=== PATIENT | male | born 1930 | race Two or more races ===

== ENCOUNTER 2017-04-28 17:42 | Inpatient (IN) | payer MEDICARE, BC ==
[2017-04-28] MEDS ORDERED: PROMETHAZINE HCL 6.25 MG in 0.9 % SODIUM CHLORIDE 100ML 100 ML IVPB ONE (18:11)
[2017-04-28] MEDS ORDERED: MORPHINE SULFATE 5 MG/ML PFS IVP ONE (18:11)
--- NOTE | 2017-04-28 18:19 | Emergency Department Record ---
History of Present Illness - General Chief complaint: Extremity Problem Stated complaint: SWOLLEN HAND Time Seen by Provider: 04/28/17 18:06 Source: Patient Mode of Arrival: Ambulatory Limitations: No limitations - History of Present Illness Initial comments: pt [facility] hand that they wondered if it was cellulitis vs gout. hand became red and painful 3 days ago. pt denies injury MD Complaint: Extremity pain, Extremity swelling Onset/Timin -: Days(s) Location: Left, Hand History of Same: No Severity scale (1-10): 9 Quality: Aching, Sharp Consistency: Constant Improves with: Nothing Worsens with: Nothing Associated Symptoms: Denies other symptoms - Related Data Home Medications Medication Instructions Recorded Confirmed Last Taken Budesonide/Formoterol Fumarate 1 puff IH DAILY 04/28/17 04/28/17 Unknown [Symbicort 160-4.5 Mcg Inhaler] Donepezil HCl [Donepezil HCl] 10 mg PO DAILY 04/28/17 04/28/17 Unknown Duloxetine HCl [Cymbalta] 30 mg PO DAILY 04/28/17 04/28/17 Unknown Ezetimibe/Simvastatin 1 each PO DAILY 04/28/17 04/28/17 Unknown [Ezetimibe-Simvastatin 10-40 mg] Fluoxetine HCl [Fluoxetine HCl] 20 mg PO DAILY 04/28/17 04/28/17 Unknown Furosemide [Lasix] 20 mg PO DAILY 04/28/17 04/28/17 Unknown Lorazepam [Ativan] 1 mg PO DAILY 04/28/17 04/28/17 Unknown Mirabegron [Myrbetriq] 50 mg PO DAILY 04/28/17 04/28/17 Unknown Oxycodone HCl/Acetaminophen 1 tab PO Q4H PRN 04/28/17 04/28/17 Unknown [Oxycodone/Acetaminophen 5mg/325mg] Trazodone HCl [Desyrel] 50 mg PO DAILY 04/28/17 04/28/17 Unknown Allergies Allergy/AdvReac Type Severity Reaction Status Date / Time levofloxacin [From Levaquin] Allergy NAUSEA AND Verified 04/28/17 17:53 VOMITING Travel Screening - Travel/Exposure Within Last 30 Days Have you traveled within the last 30 days?: No Review of Systems Reviewed: No additional complaints except as noted below Constitutional: Reports: As per HPI. Denies: Chills, Fever, Malaise, Night sweats, Weakness, Weight change Eyes: Reports: As per HPI. Denies: Eye discharge, Eye pain, Photophobia, Vision change ENT: Reports: As per HPI. Denies: Congestion, Dental pain, Ear pain, Epistaxis , Hearing loss, Throat pain Respiratory: Reports: As per HPI. Denies: Cough, Dyspnea, Hemoptysis, Stridor, Wheezes Cardiovascular: Reports: As per HPI. Denies: Arrhythmia, Chest pain, Dyspnea on exertion, Edema, Murmurs, Orthopnea, Palpitations, Paroxysmal nocturnal dyspnea, Rheumatic Fever, Syncope Endocrine: Reports: As per HPI. Denies: Fatigue, Heat or cold intolerance, Polydipsia, Polyuria Gastrointestinal: Reports: As per HPI. Denies: Abdominal pain, Constipation, Diarrhea, Hematemesis, Hematochezia, Melena, Nausea, Vomiting Genitourinary: Reports: As per HPI. Denies: Dysuria, Frequency, Hematuria, Incontinence, Retention, Testicular pain, Testicular mass, Urgency Musculoskeletal: Reports: As per HPI, Other. Denies: Arthralgia, Back pain, Gout, Joint swelling, Myalgia, Neck pain Skin: Reports: As per HPI, Other. Denies: Bruising, Change in color, Change in hair/nails, Lesions, Pruritus, Rash Neurological: Reports: As per HPI. Denies: Abnormal gait, Confusion, Headache, Numbness, Paresthesias, Seizure, Tingling, Tremors, Vertigo, Weakness Psychiatric: Reports: As per HPI. Denies: Anxiety, Auditory hallucinations, Depression, Homicidal thoughts, Suicidal thoughts, Visual hallucinations Hematological/Lymphatic: Reports: As per HPI. Denies: Anemia, Blood Clots, Easy bleeding, Easy bruising, Swollen glands Past Medical History - SOCIAL HISTORY Smoking Status: Light tobacco smoker (<10/day) Alcohol Use: None Drug Use: None - RESPIRATORY Hx Respiratory Disorders: Yes Hx Asthma: Yes Hx COPD: Yes - CARDIOVASCULAR Hx Cardio Disorders: Yes Hx Abnormal EKG: Yes - NEURO Hx Neuro Disorders: Yes Hx Headaches: Yes - GI Hx GI Disorders: No - Hx Genitourinary Disorders: Yes Hx Kidney Stones: Yes - ENDOCRINE Hx Endocrine Disorders: No - MUSCULOSKELETAL Hx Musculoskeletal Disorders: Yes Hx Arthritis: Yes - PSYCH Hx Psych Problems: Yes Hx Anxiety: Yes Hx Depression: Yes - HEMATOLOGY/ONCOLOGY Hx Hematology/Oncology Disorders: No Family Medical History Any Significant Family History?: No Physical Exam - General General Appearance: Alert, Oriented x3, Cooperative, Mild distress - Head Head exam: Normal inspection - Eye Eye exam: Normal appearance, PERRL, EOMI Pupils: Normal accommodation - ENT ENT exam: Normal exam, Mucous membranes moist, Normal external ear exam, Normal orophraynx Ear exam: Normal external inspection. negative: External canal tenderness Nasal Exam: Normal inspection. negative: Discharge, Sinus tenderness Mouth exam: Normal external inspection, Tongue normal Teeth exam: Normal inspection. negative: Dental caries Throat exam: Normal inspection. negative: Tonsillar erythema, Tonsillar exudate - Neck Neck exam: Normal inspection, Full ROM. negative: Tenderness - Respiratory Respiratory exam: Normal lung sounds bilaterally. negative: Respiratory distress - Cardiovascular Cardiovascular Exam: Regular rate, Normal rhythm, Normal heart sounds - GI/Abdominal GI/Abdominal exam: Soft, Normal bowel sounds. negative: Tenderness - Rectal Rectal exam: Deferred - exam: Deferred - Extremities Extremities exam: Normal inspection, Normal capillary refill, Tenderness. negative: Full ROM Image of Hand: 1 - swelling, erythema, pain, lrom - Back Back exam: Reports: Normal inspection, Full ROM. Denies: Muscle spasm, Rash noted, Tenderness - Neurological Neurological exam: Alert, Normal gait, Oriented X3, Reflexes normal - Psychiatric Psychiatric exam: Normal affect, Normal mood - Skin Skin exam: Dry, Intact, Normal color, Warm Course Vital Signs 04/28/17 17:47 Temperature 98.3 F Pulse Rate 65 Respiratory 20 Rate Blood Pressure 128/70 Pulse Ox 92 L Medical Decision Making - Lab Data Result diagrams: 04/28/17 18:30 04/28/17 18:30 Disposition Disposition: Admit Clinical Impression: Cellulitis of hand Disposition: Still a Patient at [facility] Decision to Admit: Admit from ER Decision to Admit Date: 04/28/17 Decision to Admit Time: 19:27 Forms: Patient Portal Access Quality - Quality Measures Quality Measures: N/A - Blood Pressure Screening Does Patient Have Any of the Following: No Blood Pressure Classification: Pre-Hypertensive BP Reading Systolic Measurement: 128 Diastolic Measurement: 70 Screening for High Blood Pressure: < Pre-Hypertensive BP, F/U Documented > [ [id number]] Pre-Hypertensive Follow-up Interventions: Follow-up with rescreen every year.
[2017-04-28 18:41] LABS: BASO % 0.2 % (0-6); EOS % 1.3 % (0-6); GRAN % 77.6 % (47-80); HEMATOCRIT 40.1 % (42.0-52.0); HEMOGLOBIN 12.8 gm/dl (14.0-18.0); LYMPH % 10.3 % (16-45); MEAN CELL VOLUME 97.3 fl (81-97); MEAN CORPUSCULAR HGB CONC 31.9 g/dl (32-36); MEAN PLATELET VOLUME 9.7 fl (7.4-10.4); MONO % 10.6 % (0-9); PLATELET COUNT 163 K/uL (130-400); RED BLOOD COUNT 4.12 M/uL (4.40-5.70); RED CELL DISTRIBUTION WIDTH 13.2 % (11.5-14.5); WHITE BLOOD COUNT W/O DIFF 8.2 K/uL (4.2-12.2)
[2017-04-28] MEDS ORDERED: CEFTRIAXONE SODIUM 1 GM in 0.9 % SODIUM CHLORIDE 100ML 100 ML IVPB ONE (18:49)
[2017-04-28 18:53] LABS: BLOOD UREA NITROGEN 16 mg/dL (8-23); CREATININE 0.9 mg/dL (0.7-1.2); EST GLOMERULAR FILTRATION RATE > 60 mL/min
[2017-04-28 18:56] LABS: GLUCOSE,RANDOM 115 mg/dL (74-109)
[2017-04-28] MEDS ORDERED: MORPHINE SULFATE 5 MG/ML PFS IVP PRN (19:53)
[2017-04-28] MEDS ORDERED: PROMETHAZINE HCL 6.25 MG in 0.9 % SODIUM CHLORIDE 100ML 100 ML IVPB PRN (19:53)
[2017-04-28] MEDS ORDERED: ACETAMINOPHEN 500 MG TABLET PO PRN (19:53)
[2017-04-28] MEDS: CEFTRIAXONE SODIUM 1 GM in 0.9 % SODIUM CHLORIDE 100ML 100 ML IVPB SCH (21:09)
[2017-04-28] MEDS: EZETIMIBE 10 MG TABLET PO SCH (21:36)
[2017-04-28] MEDS: SIMVASTATIN 20 MG TABLET PO SCH (21:36)
[2017-04-28] MEDS: HYDROCODONE/APAP 5/325MG TABLET PO PRN (22:44)
[2017-04-29] MEDS: HYDROCODONE/APAP 5/325MG TABLET PO PRN (05:21)
[2017-04-29] MEDS ORDERED: LORAZEPAM 0.5 MG TABLET PO PRN (07:18)
--- NOTE | 2017-04-29 07:54 | History & Physical ---
History of Present Illness - Date of Service Date of Service for History & Physical: 04/29/17 - History of Present Illness Admitting Diagnosis: cellulitis History of Present Illness: 86 yo male admitted for cellulitis. Patient presented to an urgent care yesterday regarding one week of worsening left hand pain, redness and swelling. The urgent care encouraged patient to go to the ER. While in the ER, patient was afebrile. WBC normal. Left hand x ray relatively unremarkable. Pain improved with IV Morphine. Cellulitis outlined and patient admitted for IV antibiotics and further monitoring. PCP: Dr. Ho Travel Screening - Travel/Exposure Within Last 30 Days Have you traveled within the last 30 days?: No - Travel/Exposure Within Last Year Have you traveled outside the [place] in the last year?: No - Additonal Travel Details Have you been exposed to anyone with a communicable illness?: No Review of Systems Constitutional: Reports: As per HPI. Denies: Chills, Fever, Malaise, Night sweats, Weakness, Weight change Eyes: Reports: As per HPI. Denies: Eye discharge, Eye pain, Photophobia, Vision change ENT: Reports: As per HPI. Denies: Congestion, Dental pain, Ear pain, Epistaxis , Hearing loss, Throat pain Respiratory: Reports: As per HPI. Denies: Cough, Dyspnea, Hemoptysis, Stridor, Wheezes Cardiovascular: Reports: As per HPI. Denies: Arrhythmia, Chest pain, Dyspnea on exertion, Edema, Murmurs, Orthopnea, Palpitations, Paroxysmal nocturnal dyspnea, Rheumatic Fever, Syncope Endocrine: Reports: As per HPI. Denies: Fatigue, Heat or cold intolerance, Polydipsia, Polyuria Gastrointestinal: Reports: As per HPI. Denies: Abdominal pain, Constipation, Diarrhea, Hematemesis, Hematochezia, Melena, Nausea, Vomiting Genitourinary: Reports: As per HPI. Denies: Dysuria, Frequency, Hematuria, Incontinence, Retention, Testicular pain, Testicular mass, Urgency Musculoskeletal: Reports: As per HPI, Other. Denies: Arthralgia, Back pain, Gout, Joint swelling, Myalgia, Neck pain Skin: Reports: As per HPI, Other. Denies: Bruising, Change in color, Change in hair/nails, Lesions, Pruritus, Rash Neurological: Reports: As per HPI. Denies: Abnormal gait, Confusion, Headache, Numbness, Paresthesias, Seizure, Tingling, Tremors, Vertigo, Weakness Psychiatric: Reports: As per HPI. Denies: Anxiety, Auditory hallucinations, Depression, Homicidal thoughts, Suicidal thoughts, Visual hallucinations Hematological/Lymphatic: Reports: As per HPI. Denies: Anemia, Blood Clots, Easy bleeding, Easy bruising, Swollen glands Past Medical History - SOCIAL HISTORY Smoking Status: Light tobacco smoker (<10/day) Alcohol Use: Rare Drug Use: None - RESPIRATORY Hx Respiratory Disorders: Yes Hx Asthma: Yes Hx COPD: Yes - CARDIOVASCULAR Hx Cardio Disorders: Yes Hx Abnormal EKG: Yes - NEURO Hx Neuro Disorders: Yes Hx Headaches: Yes - GI Hx GI Disorders: No - Hx Genitourinary Disorders: Yes Hx Kidney Stones: Yes - ENDOCRINE Hx Endocrine Disorders: No - MUSCULOSKELETAL Hx Musculoskeletal Disorders: Yes Hx Arthritis: Yes - PSYCH Hx Psych Problems: Yes Hx Anxiety: Yes Hx Depression: Yes - HEMATOLOGY/ONCOLOGY Hx Hematology/Oncology Disorders: No Family Medical History Any Significant Family History?: No H&P Meds/Allergies - Allergies Allergies: Allergies Allergy/AdvReac Type Severity Reaction Status Date / Time levofloxacin [From Levaquin] Allergy NAUSEA AND Verified 04/28/17 17:53 VOMITING - Home Medications Home Medications Medication Instructions Recorded Confirmed Last Taken Budesonide/Formoterol Fumarate 1 puff IH DAILY 04/28/17 04/28/17 Unknown [Symbicort 160-4.5 Mcg Inhaler] Donepezil HCl [Donepezil HCl] 10 mg PO DAILY 04/28/17 04/28/17 Unknown Duloxetine HCl [Cymbalta] 30 mg PO DAILY 04/28/17 04/28/17 Unknown Ezetimibe/Simvastatin 1 each PO DAILY 04/28/17 04/28/17 Unknown [Ezetimibe-Simvastatin 10-40 mg] Fluoxetine HCl [Fluoxetine HCl] 20 mg PO DAILY 04/28/17 04/28/17 Unknown Furosemide [Lasix] 20 mg PO DAILY 04/28/17 04/28/17 Unknown Lorazepam [Ativan] 1 mg PO DAILY 04/28/17 04/28/17 Unknown Mirabegron [Myrbetriq] 50 mg PO DAILY 04/28/17 04/28/17 Unknown Oxycodone HCl/Acetaminophen 1 tab PO Q4H PRN 04/28/17 04/28/17 Unknown [Oxycodone/Acetaminophen 5mg/325mg] Trazodone HCl [Desyrel] 50 mg PO DAILY 04/28/17 04/28/17 Unknown - Active Medications Active Medications: Current Medications Acetaminophen (Tylenol 500mg Tab) 1,000 mg PO Q6H PRN PRN Reason: PAIN/TEMP Hydrocodone Bitart/Acetaminophen (Perry 5mg/325mg) 1 each PO Q6H PRN PRN Reason: Pain - Severe (8-10) Last Admin: 04/29/17 05:21 Dose: 1 each Donepezil HCl (Aricept) 10 mg PO DAILY [facility] Duloxetine HCl (Cymbalta) 30 mg PO DAILY [facility] Ezetimibe (Zetia) 10 mg PO QHS [facility] Last Admin: 04/28/17 21:36 Dose: 10 mg Fluoxetine HCl (Prozac) 20 mg PO DAILY [facility] Furosemide (Lasix) 20 mg PO DAILY [facility] Ceftriaxone Sodium 1 gm/ (Sodium Chloride) 100 mls @ 200 mls/hr IVPB Q12H [facility] Stop: 05/03/17 19:54 Last Admin: 04/28/17 21:09 Dose: Not Given Promethazine HCl 6.25 mg/ (Sodium Chloride) 100.25 mls @ 200 mls/hr IVPB Q6H PRN PRN Reason: NAUSEA/VOMITING Lorazepam (Ativan) 0.5 mg PO TID PRN PRN Reason: ANXIETY Morphine Sulfate (Morphine Sulfate) 2 mg IVP Q4H PRN PRN Reason: Pain - Moderate (5-7) Stop: 05/05/17 19:54 Patient Own Med: Myrbetric ( Mirabegron) 50mg Tablet 1 each MC DAILY [facility] Simvastatin (Zocor) 40 mg PO QHS [facility] Last Admin: 04/28/17 21:36 Dose: 40 mg Trazodone HCl (Desyrel) 50 mg PO DAILY [facility] Physical Exam - Vital Signs Vital Signs: Vital Signs - Last 24 Hrs Temp Pulse Resp BP BP Pulse Ox 04/28/17 21:00 97.5 F L 65 20 132/80 97 04/28/17 20:53 61 20 04/28/17 20:05 20 138/83 95 04/28/17 20:00 16 86 L - General General Appearance: Alert, Oriented x3, Cooperative, No acute distress Limitations: No limitations - Head Head exam: Normal inspection - Eye Eye exam: Normal appearance, PERRL, EOMI Pupils: Normal accommodation - ENT ENT exam: Normal exam, Mucous membranes moist, Normal external ear exam, Normal orophraynx Ear exam: Normal external inspection. negative: External canal tenderness Nasal Exam: Normal inspection. negative: Discharge, Sinus tenderness Mouth exam: Normal external inspection, Tongue normal Teeth exam: Normal inspection. negative: Dental caries Throat exam: Normal inspection. negative: Tonsillar erythema, Tonsillar exudate - Neck Neck exam: Normal inspection, Full ROM. negative: Tenderness - Respiratory Respiratory exam: Normal lung sounds bilaterally, Decreased breath sounds ( throughout). negative: Respiratory distress - Cardiovascular Cardiovascular Exam: Regular rate, Normal rhythm, Normal heart sounds - GI/Abdominal GI/Abdominal exam: Soft, Normal bowel sounds. negative: Tenderness - Rectal Rectal exam: Deferred - exam: Deferred - Extremities Extremities exam: Normal inspection, Joint swelling (left hand), Normal capillary refill, Tenderness. negative: Full ROM - Back Back exam: Reports: Normal inspection, Full ROM. Denies: Muscle spasm, Rash noted, Tenderness - Neurological Neurological exam: Alert, Normal gait, Oriented X3, Reflexes normal - Psychiatric Psychiatric exam: Normal affect, Normal mood - Skin Skin exam: Dry, Erythema (left hand, within marked lines), Intact, Warm. negative: Rash Type of lesion: negative: Abscess, Laceration Results - Labs Result Diagrams: 04/28/17 18:30 04/28/17 18:30 VTE H&P Assessment - Risk for VTE Risk for VTE: Yes Risk Level: Moderate Risk Assessment Date: 04/29/17 Risk Assessment Time: 10:00 VTE Orders Placed or Will Be Placed: No VTE Reason for No Prophylaxis: Not Indicated (patient ambulating the room) Plan - Inpatient Certification Inpatient Certification: Admit to inpatient care: Based on my medical assessment, after consideration of patient's risk factors (age, co-morbidities and patient presenting symptoms and acuity), I expect that this patient will remain in the hospital greater than or equal to two midnights and that the services needed warrant inpatient care because: Patient Risk Factors: [] Estimated length of stay: [] The patient may reasonably be expected to be discharged or transferred to a hospital within 96 hours after admission to [facility]. Services needed: [] Post hospital care (if known): [] I certify that my determination is in accordance with my understanding of Medicare requirements for reasonable and necessary inpatient services. - Detailed Diagnosis and Plan (1) Cellulitis of hand Current Visit: Yes Status: Acute Base Code: L03.119 - CELLULITIS OF UNSPECIFIED PART OF LIMB Comment: 04/29/17 - normal temp and wbc - redness improved since admission. erythema outlined - will continue IV Rocephin. Plan to transition to PO Clinda later today or tomorrow - Percocet 5/325 TID for pain control - continue to monitor for fever, worsening pain, or redness. - anticipate D/C home Sunday (2) Full code status Current Visit: Yes Status: Acute Base Code: Z78.9 - OTHER SPECIFIED HEALTH STATUS Comment: 04/29- FULL CODE (3) DVT prophylaxis Current Visit: Yes Status: Acute Base Code: [id number] - Comment: 04/29 - ambulation as tolerated
[2017-04-29] MEDS: CEFTRIAXONE SODIUM 1 GM in 0.9 % SODIUM CHLORIDE 100ML 100 ML IVPB SCH ×2 (08:05→21:36)
[2017-04-29] MEDS: OXYCODONE HCL/APAP 5MG/325MG TABLET PO SCH ×2 (09:13→15:55)
[2017-04-29] MEDS: DONEPEZIL HCL 5 MG TABLET PO SCH (09:14)
[2017-04-29] MEDS: DULOXETINE HCL 30 MG CAPSULE.DR PO SCH (09:14)
[2017-04-29] MEDS: TRAZODONE 50 MG TABLET PO SCH (09:14)
[2017-04-29] MEDS: FLUOXETINE HCL 20 MG CAPSULE PO SCH (09:15)
[2017-04-29] MEDS: FUROSEMIDE 20 MG TABLET PO SCH (09:15)
[2017-04-29] MEDS ORDERED: [UNRECOGNIZED DRUG - OTHER] IH SCH (10:00)
[2017-04-29] MEDS ORDERED: FORMOTEROL FUMARATE IH SCH (10:00)
[2017-04-29] MEDS ORDERED: MYRBETRIC 50 MG MC SCH (10:00)
[2017-04-29] MEDS ORDERED: LORAZEPAM 0.5 MG TABLET PO SCH (10:00)
[2017-04-29] MEDS ORDERED: LORAZEPAM 1 MG PO SCH (10:00)
[2017-04-29] MEDS ORDERED: SIMVASTATIN PO SCH (10:00)
[2017-04-29] MEDS ORDERED: Non-Formulary MISC (Mirabegron [Myrbetriq] 50 MG) PO SCH (10:00)
[2017-04-29] MEDS ORDERED: BUDESONIDE IH SCH (10:00)
[2017-04-29] MEDS ORDERED: EZETIMIBE PO SCH (10:00)
[2017-04-29] MEDS ORDERED: Non-Formulary MISC (Donepezil Hcl [Donepezil Hcl] 10 MG) PO SCH (10:00)
[2017-04-29] MEDS: BREO (FLUTICASONE/VILANTEROL) 200MCG/25MCG INHALER INH SCH (11:07)
[2017-04-29] MEDS ORDERED: SUMATRIPTAN 6 MG/0.5 ML VIAL SQ ONE (13:54)
[2017-04-29] MEDS: MYRBETRIC 50 MG MC SCH (19:43)
[2017-04-29] MEDS: SIMVASTATIN 20 MG TABLET PO SCH (21:35)
[2017-04-29] MEDS: EZETIMIBE 10 MG TABLET PO SCH (21:36)
[2017-04-29] MEDS ORDERED: OXYCODONE HCL/APAP 5MG/325MG TABLET PO SCH (22:00)
--- NOTE | 2017-04-29 22:46 | RADIOLOGY REPORT ---
EXAM: HAND, LEFT 3 VIEWS HISTORY: INJURY. TECHNIQUE: Three views of the left hand were performed. FINDINGS: There is severe degenerative change of the first carpometacarpal joint space. There is moderate degenerative change of the proximal and distal interphalangeal joint spaces of all digits. No bony destructive change. IMPRESSION: 1. 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 2. MODERATE DEGENERATIVE CHANGE OF THE PROXIMAL AND DISTAL INTERPHALANGEAL JOINT SPACES OF ALL DIGITS. NO BONY DESTRUCTIVE CHANGE. [facility]: [id number] [facility]
[2017-04-30] MEDS: OXYCODONE HCL/APAP 5MG/325MG TABLET PO SCH ×4 (02:13→20:05)
[2017-04-30 06:44] LABS: EOS % 2.5 % (0-6); HEMOGLOBIN 12.8 gm/dl (14.0-18.0); LYMPH % 19.3 % (16-45); MEAN CELL VOLUME 96.6 fl (81-97); MEAN CORPUSCULAR HEMOGLOBIN 30.9 pg (27-33); MEAN PLATELET VOLUME 9.5 fl (7.4-10.4); MONO % 10.2 % (0-9); PLATELET COUNT 175 K/uL (130-400); RED BLOOD COUNT 4.14 M/uL (4.40-5.70); RED CELL DISTRIBUTION WIDTH 12.9 % (11.5-14.5); WHITE BLOOD COUNT W/O DIFF 5.7 K/uL (4.2-12.2)
[2017-04-30 07:07] LABS: ALBUMIN 3.4 g/dL (4.0-5.0); ALKALINE PHOSPHATASE 83 U/L (40-129); ALT/SGPT 21 U/L (<41); AST/SGOT 27 U/L (10.0-50.0); BLOOD UREA NITROGEN 13 mg/dL (8-23); CREATININE 0.7 mg/dL (0.7-1.2); EST GLOMERULAR FILTRATION RATE > 60 mL/min; GLUCOSE,RANDOM 89 mg/dL (74-109); TOTAL PROTEIN 6.8 g/dL (6.6-8.7)
--- NOTE | 2017-04-30 07:28 | RADIOLOGY REPORT ---
EXAM: CHEST, TWO VIEWS HISTORY: CHEST CONGESTION. COPD. TECHNIQUE: Two views of the chest were obtained. Comparison: None. FINDINGS: The heart is not enlarged. Aortic atherosclerosis and mild tortuosity. Previous aortic valve repair. The lungs are hyperinflated likely related to emphysematous change/COPD. There are coarsened interstitial markings likely on account of scarring/fibrosis. Superimposed infiltrates, however, would be difficult to completely exclude. No clear focal consolidation or pleural effusion. Left plate like discoid atelectasis or scar within the lung base. IMPRESSION: 1. PRESUMED INTERSTITIAL SCARRING/FIBROSIS THOUGHT SUPERIMPOSED INFILTRATES DIFFICULT TO COMPLETELY EXCLUDE. 2. COPD. JOB NUMBER: [id number] [facility]
[2017-04-30] MEDS: CEFTRIAXONE SODIUM 1 GM in 0.9 % SODIUM CHLORIDE 100ML 100 ML IVPB SCH ×2 (08:04→20:00)
[2017-04-30] MEDS: TRAZODONE 50 MG TABLET PO SCH (09:33)
[2017-04-30] MEDS: DULOXETINE HCL 30 MG CAPSULE.DR PO SCH (09:33)
[2017-04-30] MEDS: FUROSEMIDE 20 MG TABLET PO SCH (09:33)
[2017-04-30] MEDS: FLUOXETINE HCL 20 MG CAPSULE PO SCH ×2 (09:33→11:02)
[2017-04-30] MEDS: DONEPEZIL HCL 5 MG TABLET PO SCH (09:33)
[2017-04-30] MEDS ORDERED: LORAZEPAM 0.5 MG TABLET PO PRN (10:00)
--- NOTE | 2017-04-30 10:55 | Physician Progress Note ---
Subjective - Date Date of Physician Progress Note: 04/30/17 - Subjective Subjective Comment: lying in bed. left hand pain continues though Percocet 5/325 mg Q6 has been helpful. Redness remains within borders. ROM decreased 2/2 pain level. No additional concerns at this time. Objective - Vital Signs Vital Signs: Vital Signs - Last 24 Hrs Temp Pulse Pulse Resp BP BP BP 04/30/17 10:12 97.5 F L 122/74 04/30/17 10:00 97.8 F 69 16 116/66 04/30/17 08:10 20 04/30/17 06:00 97.5 F L 66 18 122/74 04/29/17 20:39 97.9 F 71 18 110/71 04/29/17 13:55 72 16 112/63 04/29/17 11:18 76 18 04/29/17 11:09 98.1 F 80 18 134/69 Pulse Ox 04/30/17 10:12 04/30/17 10:00 96 04/30/17 08:10 04/30/17 06:00 94 L 04/29/17 20:39 95 04/29/17 13:55 93 L 04/29/17 11:18 93 L 04/29/17 11:09 92 L - General General Appearance: Alert, Oriented x3, Cooperative, No acute distress Limitations: No limitations - Head Head exam: Normal inspection - Eye Eye exam: Normal appearance, PERRL, EOMI Pupils: Normal accommodation - ENT ENT exam: Normal exam, Mucous membranes moist, Normal external ear exam, Normal orophraynx Ear exam: Normal external inspection. negative: External canal tenderness Nasal Exam: Normal inspection. negative: Discharge, Sinus tenderness Mouth exam: Normal external inspection, Tongue normal Teeth exam: Normal inspection. negative: Dental caries Throat exam: Normal inspection. negative: Tonsillar erythema, Tonsillar exudate - Neck Neck exam: Normal inspection, Full ROM. negative: Tenderness - Respiratory Respiratory exam: Normal lung sounds bilaterally, Decreased breath sounds ( throughout). negative: Respiratory distress - Cardiovascular Cardiovascular Exam: Regular rate, Normal rhythm, Normal heart sounds - GI/Abdominal GI/Abdominal exam: Soft, Normal bowel sounds. negative: Tenderness - Rectal Rectal exam: Deferred - exam: Deferred - Extremities Extremities exam: Normal inspection, Joint swelling (left hand), Normal capillary refill, Tenderness. negative: Full ROM - Back Back exam: Reports: Normal inspection, Full ROM. Denies: Muscle spasm, Rash noted, Tenderness - Neurological Neurological exam: Alert, Normal gait, Oriented X3, Reflexes normal - Psychiatric Psychiatric exam: Normal affect, Normal mood - Skin Skin exam: Dry, Erythema (left hand, within marked lines), Intact, Warm. negative: Rash Type of lesion: negative: Abscess, Laceration Assessment and Plan - Inpatient Certification Inpatient Certification: RFs: left hand swelling, erythema and pain. treatments: IV antibiotics, pain control, monitor VSs length of stay: 2-3 nights d/c plan: home 04/30/17 10:54 - Assessment and Plan (1) Cellulitis of hand Current Visit: Yes Status: Acute Base Code: L03.119 - CELLULITIS OF UNSPECIFIED PART OF LIMB Comment: 04/30 - normal temp and wbc. left hand xray on admission relatively unremarkable - redness unchange. remains within drwan borders - will continue IV Rocephin. Plan to transition to PO Clinda later today or tomorrow - Percocet 5/325 TID for pain control - will obtain CRP, sed rate and CT of left hand - continue to monitor for fever, worsening pain, or redness. - will await d/c noting continued erythema, swelling and pain level. (2) Full code status Current Visit: Yes Status: Acute Base Code: Z78.9 - OTHER SPECIFIED HEALTH STATUS Comment: 04/30- FULL CODE (3) DVT prophylaxis Current Visit: Yes Status: Acute Base Code: [id number] - Comment: 04/30 - ambulation as tolerated Results - Labs Result Diagrams: 04/30/17 06:27 04/30/17 06:27 Labs Last 24 Hours: Laboratory Results - last 24 hr 04/30/17 04/30/17 04/30/17 06:27 06:27 07:00 WBC 5.7 RBC 4.14 L Hgb 12.8 L Hct 40.0 L MCV 96.6 MCH 30.9 MCHC 32.0 RDW 12.9 Plt Count 175 MPV 9.5 Gran % 68.0 Lymphocytes % 19.3 Monocytes % 10.2 H Eosinophils % 2.5 Basophils % 0.0 Sodium 140 Potassium 4.2 Chloride 103 Carbon Dioxide 28.0 Anion Gap 9.0 BUN 13 Creatinine 0.7 Estimated GFR > 60 Random Glucose 89 Calcium 8.8 Total Bilirubin 0.20 AST 27 ALT 21 Alkaline Phosphatase 83 C-Reactive Protein 13.98 H Total Protein 6.8 Albumin 3.4 L Globulin 3.4 Albumin/Globulin Ratio 1.0 L DVT/PE Assessment - Risk for VTE Risk for VTE: No Risk Level: Moderate Risk Assessment Date: 04/29/17 Risk Assessment Time: 10:00 VTE Orders Placed or Will Be Placed: No VTE Reason for No Prophylaxis: Not Indicated (patient ambulating the room) - Active Medicaitons Current Medications: Current Medications Acetaminophen (Tylenol 500mg Tab) 1,000 mg PO Q6H PRN PRN Reason: PAIN/TEMP Buspirone HCl (Buspar) 30 mg PO BID [facility] Clopidogrel Bisulfate (Plavix) 75 mg PO DAILY [facility] Donepezil HCl (Aricept) 10 mg PO QHS [facility] Duloxetine HCl (Cymbalta) 30 mg PO DAILY [facility] Last Admin: 04/30/17 09:33 Dose: 30 mg Ezetimibe (Zetia) 10 mg PO QHS [facility] Last Admin: 04/29/17 21:36 Dose: 10 mg Fluoxetine HCl (Prozac) 40 mg PO DAILY [facility] Furosemide (Lasix) 20 mg PO DAILY [facility] Last Admin: 04/30/17 09:33 Dose: 20 mg Ceftriaxone Sodium 1 gm/ (Sodium Chloride) 100 mls @ 200 mls/hr IVPB Q12H [facility] Stop: 05/03/17 19:54 Last Admin: 04/30/17 08:04 Dose: 200 mls/hr Lorazepam (Ativan) 0.5 mg PO BID PRN PRN Reason: ANXIETY Melatonin (Melatonin) 5 mg PO QHS [facility] Morphine Sulfate (Morphine Sulfate) 2 mg IVP Q4H PRN PRN Reason: Pain - Moderate (5-7) Stop: 05/05/17 19:54 Oxycodone/Acetaminophen (Percocet 5-325 Mg Tablet) 1 udtab PO Q6H [facility] Stop: 05/07/17 02:16 Last Admin: 04/30/17 08:04 Dose: 1 udtab Patient Own Med: Myrbetric ( Mirabegron) 50mg Tablet 1 each MC 1700 [facility] Last Admin: 04/29/17 19:43 Dose: 1 each Simvastatin (Zocor) 40 mg PO QHS [facility] Last Admin: 04/29/17 21:35 Dose: 40 mg Trazodone HCl (Desyrel) 50 mg PO QHS [facility] AMI Plan - Labs Result Diagrams: 04/30/17 06:27 04/30/17 06:27
[2017-04-30] MEDS: BUSPIRONE 5 MG TABLET PO SCH ×2 (11:01→21:32)
[2017-04-30] MEDS: CLOPIDOGREL 75MG TABLET PO SCH (11:02)
[2017-04-30] MEDS: BREO (FLUTICASONE/VILANTEROL) 200MCG/25MCG INHALER INH SCH (11:18)
[2017-04-30] MEDS: MYRBETRIC 50 MG MC SCH (17:53)
[2017-04-30] MEDS: SIMVASTATIN 20 MG TABLET PO SCH (21:32)
[2017-04-30] MEDS: EZETIMIBE 10 MG TABLET PO SCH (21:33)
[2017-04-30] MEDS ORDERED: BISACODYL 5 MG TABLET PO SCH (22:00)
[2017-04-30] MEDS ORDERED: MELATONIN 5 MG TABLET PO SCH (22:00)
[2017-04-30] MEDS ORDERED: DONEPEZIL HCL 5 MG TABLET PO SCH (22:00)
[2017-04-30] MEDS ORDERED: TRAZODONE 50 MG TABLET PO SCH (22:00)
[2017-05-01] MEDS: OXYCODONE HCL/APAP 5MG/325MG TABLET PO SCH ×2 (01:56→08:27)
[2017-05-01 06:33] LABS: BASO % 0.2 % (0-6); EOS % 4.3 % (0-6); GRAN % 62.8 % (47-80); HEMATOCRIT 38.9 % (42.0-52.0); HEMOGLOBIN 12.5 gm/dl (14.0-18.0); MEAN CORPUSCULAR HGB CONC 32.1 g/dl (32-36); MEAN PLATELET VOLUME 9.4 fl (7.4-10.4); MONO % 11.7 % (0-9); PLATELET COUNT 193 K/uL (130-400); RED BLOOD COUNT 4.05 M/uL (4.40-5.70); RED CELL DISTRIBUTION WIDTH 12.7 % (11.5-14.5); WHITE BLOOD COUNT W/O DIFF 5.4 K/uL (4.2-12.2)
[2017-05-01 06:35] LABS: MEAN CORPUSCULAR HEMOGLOBIN 30.8 pg (27-33)
[2017-05-01 06:50] LABS: ALBUMIN 3.3 g/dL (4.0-5.0); ALKALINE PHOSPHATASE 81 U/L (40-129); ALT/SGPT 30 U/L (<41); AST/SGOT 41 U/L (10.0-50.0); BLOOD UREA NITROGEN 15 mg/dL (8-23); CREATININE 0.7 mg/dL (0.7-1.2); EST GLOMERULAR FILTRATION RATE > 60 mL/min; GLUCOSE,RANDOM 98 mg/dL (74-109); TOTAL PROTEIN 6.5 g/dL (6.6-8.7)
--- NOTE | 2017-05-01 07:15 | CT SCAN REPORT ---
EXAM: CT OF THE LEFT FOREARM AND HAND WITH CONTRAST HISTORY: CELLULITIS OF THE LEFT HAND. TECHNIQUE: Axial CT scan of the left forearm and hand were performed following the intravenous administration of 100 ml of Omnipaque 300 as the IV contrast. Comparison: No prior CT with which to compare. Comparison is made with the left hand x-ray series of 04/28/17. Report of the prior x-ray series not as yet available within PACS. FINDINGS: There is hazy increased density in the subcutaneous tissues of the forearm distally extending into the wrist and hand consistent with edema. No abnormal air collection identified within the soft tissues of the forearm, wrist , or hand. There is a small low attenuation fluid collection at the level of the wrist just proximal to the fusiform bone. This is nonspecific. No obvious enhancement of the wall seen to suggest an abscess and this may be a small cyst , but correlation with physical exam and point tenderness suggested. If clinically warranted, MRI could be performed for further evaluation. 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 Degenerative arthritis also seen in some of the IP joints in the fingers. IMPRESSION: 1. APPEARANCE CONSISTENT WITH SOME EDEMA/CELLULITIS IN THE MID TO DISTAL ASPECT OF THE FOREARM EXTENDING INTO THE WRIST AND HAND. 2. SMALL FLUID COLLECTION IN THE WRIST ALONG THE ULNAR ASPECT JUST SUPERIOR TO THE FUSIFORM BONE. THIS IS NONSPECIFIC DESCRIBED ABOVE. 3. 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 JOB NUMBER: [id number] [facility]
[2017-05-01 07:55] LABS: ERYTHROCYTE SEDIMENTATION RATE 64 mm/hr (0-20)
[2017-05-01] MEDS: CEFTRIAXONE SODIUM 1 GM in 0.9 % SODIUM CHLORIDE 100ML 100 ML IVPB SCH (08:27)
[2017-05-01] MEDS: BUSPIRONE 5 MG TABLET PO SCH (09:35)
[2017-05-01] MEDS: FLUOXETINE HCL 20 MG CAPSULE PO SCH (09:35)
[2017-05-01] MEDS: FUROSEMIDE 20 MG TABLET PO SCH (09:35)
[2017-05-01] MEDS: DULOXETINE HCL 30 MG CAPSULE.DR PO SCH (09:35)
[2017-05-01] MEDS: CLOPIDOGREL 75MG TABLET PO SCH (09:35)
--- NOTE | 2017-05-01 09:56 | Discharge Summary ---
Providers Discharge Summary Date: 05/01/17 Date of admission: 04/28/17 19:59 Expected Date of Discharge: 05/01/17 Attending physician: ISA CHIN Primary care physician: YONATHAN HO M.D. Physical Exam - Vital Signs Vital Signs: Vital Signs - Last 24 Hrs Temp Pulse Pulse Resp BP BP BP 05/01/17 08:44 16 05/01/17 08:18 98.1 F 70 18 103/60 04/30/17 20:43 16 04/30/17 20:07 98.0 F 66 18 132/68 04/30/17 18:00 97.4 F L 67 16 117/67 04/30/17 11:23 70 16 04/30/17 10:12 97.5 F L 122/74 04/30/17 10:00 97.8 F 69 16 116/66 Pulse Ox 05/01/17 08:44 05/01/17 08:18 94 L 04/30/17 20:43 04/30/17 20:07 96 04/30/17 18:00 94 L 04/30/17 11:23 04/30/17 10:12 04/30/17 10:00 96 - General General Appearance: Alert, Oriented x3, Cooperative, No acute distress Limitations: No limitations - Head Head exam: Normal inspection - Eye Eye exam: Normal appearance, PERRL, EOMI Pupils: Normal accommodation - ENT ENT exam: Normal exam, Mucous membranes moist, Normal external ear exam, Normal orophraynx Ear exam: Normal external inspection. negative: External canal tenderness Nasal Exam: Normal inspection. negative: Discharge, Sinus tenderness Mouth exam: Normal external inspection, Tongue normal Teeth exam: Normal inspection. negative: Dental caries Throat exam: Normal inspection. negative: Tonsillar erythema, Tonsillar exudate - Neck Neck exam: Normal inspection, Full ROM. negative: Tenderness - Respiratory Respiratory exam: Normal lung sounds bilaterally, Decreased breath sounds ( throughout). negative: Respiratory distress - Cardiovascular Cardiovascular Exam: Regular rate, Normal rhythm, Normal heart sounds - GI/Abdominal GI/Abdominal exam: Soft, Normal bowel sounds. negative: Tenderness - Rectal Rectal exam: Deferred - exam: Deferred - Extremities Extremities exam: Normal inspection, Joint swelling (left hand, improving), Normal capillary refill, Tenderness. negative: Full ROM - Back Back exam: Reports: Normal inspection, Full ROM. Denies: Muscle spasm, Rash noted, Tenderness - Neurological Neurological exam: Alert, Normal gait, Oriented X3, Reflexes normal - Psychiatric Psychiatric exam: Normal affect, Normal mood - Skin Skin exam: Dry, Erythema (left hand, within marked lines, has signficantly improved), Intact. negative: Rash, Warm Type of lesion: negative: Abscess, Laceration Hospitalization - Hospitalization Admission Diagnosis: cellulitis - Problem List/Discharge Diagnosis (1) Cellulitis of hand Current Visit: Yes Status: Acute Base Code: L03.119 - CELLULITIS OF UNSPECIFIED PART OF LIMB Comment: 05/01 - normal temp and wbc. - left hand xray on admission & left hand CT relatively unremarkable (aside from noted cellulitis) - redness & swelling have signficantly improved. patient has been ROM this morning also. - he received IV Rocephin this morning. he will continue Clindamycin as outpatient. - Percocet 5/325 TID for pain control- patient has enough at home. He knows he should not operate machinery/motorized vehicles while on medicaiton. - he will fup with PCP May 07 @ 4 pm. He agree's to return to the ED in the meantime re any new or worsening symtoms. - in home nursing set up by our employment case manager, Carmina. (2) Full code status Current Visit: Yes Status: Acute Base Code: Z78.9 - OTHER SPECIFIED HEALTH STATUS Comment: 05/01- remained FULL CODE - Hospitalization Course Disposition: Home Health Service Hospital Course: 86 yo male admitted for cellulitis. Patient presented to an urgent care yesterday regarding one week of worsening left hand pain, redness and swelling. The urgent care encouraged patient to go to the ER. While in the ER, patient was afebrile. WBC normal. Left hand x ray relatively unremarkable. Pain improved with IV Morphine. Cellulitis outlined and patient admitted for IV antibiotics and further monitoring. PCP: Dr. Ho 04/30-vinay in bed. left hand pain continues though Percocet 5/325 mg Q6 has been helpful. Redness remains within borders. ROM decreased 2/2 pain level. No additional concerns at this time. 05/01-sitting up in bed comfortably. very anxious to get home. states his pain has been well controlled with percocet. he's not required any pain medication in over 6 hours. left hand swelling/erythema have improved. tolerating meals. ambulating the room and hallway. willing to have nursing come out to the house. Procedures: Imaging and X-Rays 04/29/17 11:27 CHEST 2 VIEWS [RAD] Stat 04/30/17 10:50 UPPER EXTREMITY W CONTRAST [CT] Stat Abnormal Labs: Abnormal Lab Results 04/30/17 04/30/17 04/30/17 Range/Units 06:27 06:27 07:00 RBC 4.14 L (4.40-5.70) M/uL Hgb 12.8 L (14.0-18.0) gm/dl Hct 40.0 L (42.0-52.0) % Monocytes % 10.2 H (0-9) % ESR (0-20) mm/hr C-Reactive Protein 13.98 H (<0.5) mg/dL Total Protein (6.6-8.7) g/dL Albumin 3.4 L (4.0-5.0) g/dL Albumin/Globulin Ratio 1.0 L (1.1-1.8) 04/30/17 05/01/17 05/01/17 Range/Units 07:00 06:24 06:24 RBC 4.05 L (4.40-5.70) M/uL Hgb 12.5 L (14.0-18.0) gm/dl Hct 38.9 L (42.0-52.0) % Monocytes % 11.7 H (0-9) % ESR 64 H 64 H (0-20) mm/hr C-Reactive Protein 8.30 H (<0.5) mg/dL Total Protein 6.5 L (6.6-8.7) g/dL Albumin 3.3 L (4.0-5.0) g/dL Albumin/Globulin Ratio 1.0 L (1.1-1.8) Condition at Discharge: (2) Stable Discharge Medications - Discharge Medications Prescriptions: Bisacodyl [Dulcolax] 5 mg PO QHS #5 tablet Clindamycin HCl [Cleocin HCl] 300 mg PO Q6H #23 capsule Home Medications: Ambulatory Orders Donepezil HCl 10 mg PO QHS 04/28/17 [Last Taken Unknown] Duloxetine HCl [Cymbalta] 30 mg PO DAILY 04/28/17 [Last Taken Unknown] Ezetimibe/Simvastatin [Ezetimibe-Simvastatin 10-40 mg] 1 each PO QHS 04/28/17 [ Last Taken Unknown] Fluoxetine HCl 40 mg PO DAILY 04/28/17 [Last Taken Unknown] Furosemide [Lasix] 20 mg PO DAILY 04/28/17 [Last Taken Unknown] Lorazepam [Ativan] 1 mg PO BID PRN 04/28/17 [Last Taken Unknown] Mirabegron [Myrbetriq] 50 mg PO DAILY 04/28/17 [Last Taken Unknown] Oxycodone HCl/Acetaminophen [Oxycodone/Acetaminophen 5mg/325mg] 1 tab PO Q4H PRN 04/28/17 [Last Taken Unknown] Trazodone HCl [Desyrel] 50 mg PO QHS 04/28/17 [Last Taken Unknown] Buspirone HCl 30 mg PO BID 04/30/17 [Last Taken Unknown] Clopidogrel Bisulfate [Clopidogrel] 75 mg PO DAILY 04/30/17 [Last Taken Unknown] Melatonin 6 mg PO QHS 04/30/17 [Last Taken Unknown] Potassium Chloride [Klor-Con 10] 10 meq PO DAILY 04/30/17 [Last Taken Unknown] Bisacodyl [Dulcolax] 5 mg PO QHS #5 tablet 05/01/17 [Last Taken Unknown] Budesonide/Formoterol Fumarate [Symbicort 160-4.5 Mcg Inhaler] 1 puff IH DAILY # 1 inh 05/01/17 [Last Taken Unknown] Clindamycin HCl [Cleocin HCl] 300 mg PO Q6H #23 capsule 05/01/17 [Last Taken Unknown] Discharge Plan - Discharge Instructions Activity at Discharge: Increase Activity as Tolerated Diet at Discharge: Regular Diet Instructions: Cellulitis (DC) Additional Instructions: Continue home medications. Started you on Clindamycin for left hand infection. Please make sure you complete antibiotic. Please follow up with Dr. Ho on May 07 at 4 pm. Continue Percocet for pain control. Be sure not to operate motorized vehicles after taking this prescription. Return to the ER re any new or worsening symptoms (i.e- increased pain, worsening swelling, redness beyond drawn lines, fever, chills, etc). Quality Measures - Quality Measures Quality Measures: Advance Directives, Documentation of Current Medications in Medical Record, Elder Maltreatment Screen and Follow-Up Plan, Screening for High Blood Pressure and F/U Documented - Current Medications Quality Measure: Measure #130: Documentation of Current Medications Documentation of Current Medications: <Current Medications Documented/Reviewed> [[id number]] - Blood Pressure Screening Quality Measure: Screening for High Blood Pressure and Follow-Up Documented Does Patient Have Any of the Following: No Blood Pressure Classification: Pre-Hypertensive BP Reading Systolic Measurement: 122 Diastolic Measurement: 74 Screening for High Blood Pressure: < Pre-Hypertensive BP, F/U Documented > [ [id number]] Pre-Hypertensive Follow-up Interventions: Follow-up with rescreen every year. - Advance Directives Quality Measure: Measure #47: Care Plan Advance Directives Established: No Advance Directives Information Provided To Patient: No Advance Directives on File: No Advance Care Planning: <Care Plan/Decision Maker Documented; Discussed & Documented> [[id number]] - Elder Abuse Suspicion Index Screening: Elder Abuse Suspicion Index Screening Rely on people for bathing, dressing, shopping, banking, etc: No Prevented from getting food, clothes, medication, etc: No Made to feel shamed or threatened by someone: No Forced to sign papers or use money against will: No Feel afraid, touched in ways not wanted or hurt physically: No Poor eye contact, withdrawn, malnourished, cuts or bruises: No Screening Result: Negative result EASI Reference Information: [place] HAYNES, Bren C, Jazmine D, Justin Moyer.Development and validation of a tool to assist physicians identification of elder abuse: The Elder Abuse Suspicion Index (EASI ). Journal of Elder Abuse and Neglect, 2008; 20 (3): 276-300. - Elder Maltreatment Screen Quality Measures: Elder Maltreatment Screen and Follow-Up Plan Elder Maltreatment Screen: <Negative, No Follow-Up Plan Required> [[id number]]
[2017-05-01] MEDS: BREO (FLUTICASONE/VILANTEROL) 200MCG/25MCG INHALER INH SCH (10:52)
== END 2017-05-01 12:45 | disposition home health service (06) | DRG 603 ==
LOC: ER 17:42 → MEDSURG 19:59
PROVIDERS: ADMIT Internal Medicine; ATTEND Internal Medicine
DX: L03.114 Cellulitis of left upper limb (principal); M25.542 Pain in joints of left hand; L03.119 Cellulitis of unspecified part of limb; Z72.0 Tobacco use; Z78.9 Other specified health status; M19.90 Unspecified osteoarthritis, unspecified site; J44.9 Chronic obstructive pulmonary disease, unspecified; J45.909 Unspecified asthma, uncomplicated; F41.8 Other specified anxiety disorders
CPT/HCPCS: 99285 ×2; 96374; 96365; 96366; 85025; 80048; 73130; J2270; 71046; 80053; 83605; 85651; 86140; 94640; 99223; 99233; 99239; J2550; J3030